=== PATIENT | female | born 1970 | race Caucasian/White ===

== ENCOUNTER 2023-02-09 17:37 | Emergency (ER) | payer OTHER ==
[~2023-02-09] VITALS: Ht 165.1 cm; Wt 90.7 kg
[2023-02-09 18:09] LABS: BASOPHILS ABSOLUTE AUTO 0.07 K/mm3 (0.00-0.23); BASOPHILS PERCENT AUTO 1 % (0-2); EOSINOPHILS ABSOLUTE AUTO 0.18 K/mm3 (0.00-0.68); EOSINOPHILS PERCENT AUTO 2 % (0-6); Hematocrit 39.1 % (33.0-51.0); Hemoglobin 12.7 g/dL (11.5-16.0); IMMATURE GRAN ABSOLUTE AUTO 0.03 K/mm3 (0.00-0.10); IMMATURE GRAN PERCENT AUTO 0 % (0-1); LYMPHOCYTES ABSOLUTE AUTO 2.08 K/mm3 (0.84-5.20); LYMPHOCYTES PERCENT AUTO 22 % (21-46); MONOCYTES ABSOLUTE AUTO 0.81 K/mm3 (0.16-1.47); MONOCYTES PERCENT AUTO 9 % (4-13); Mean Corpuscular HGB 25.9 pg (26.0-34.0); Mean Corpuscular HGB Conc 32.5 g/dL (31.5-36.5); Mean Corpuscular Volume 80 fL (80-100); Mean Platelet Volume 9.7 fL (9.1-12.4); NEUTROPHILS PERCENT AUTO 66 % (41-73); Platelet Count 277 K/mm3 (150-400); RDW Coefficient Variation 13.2 % (11.7-14.2); RDW Standard Deviation 37.4 fL (35.1-46.3); Red Blood Cell Count 4.91 M/mm3 (3.80-5.20); White Blood Cell Count 9.37 K/mm3 (4.00-11.30)
[2023-02-09] MEDS ORDERED: PANT40 PO (18:12)
[2023-02-09] MEDS ORDERED: FAMO20 PO (18:12)
[2023-02-09] MEDS ORDERED: Vitamin D1000 UNI1 PO (18:12)
[2023-02-09] MEDS ORDERED: MONT10T PO (18:13)
[2023-02-09] MEDS ORDERED: ALBU90OI INH (18:14)
[2023-02-09] MEDS ORDERED: Flovent Diskus50 MCG IH (18:14)
[2023-02-09 18:38] LABS: Albumin, Blood 3.9 g/dL (3.4-5.0); Albumin/Globulin Ratio 1.1 (0.8-1.8); Bilirubin, Total 0.5 mg/dL (0.1-1.0); Bun/Creatinine Ratio 24.8 (12.0-20.0); Calcium, Blood 8.7 mg/dL (8.5-10.1); Creatinine, Blood 0.73 mg/dL (0.40-1.00); Globulin, Blood 3.5 g/dL (2.2-4.0); Potassium, Blood 3.9 mmol/L (3.5-5.5); Total Protein, Blood 7.4 g/dL (6.4-8.2)
[2023-02-09 23:34] LABS: Source, Urine Clean Catch
[2023-02-09 23:37] LABS: Bilirubin, Urine Neg (Neg); Blood, Urine Neg (Neg); Glucose Qualitative, Urine Neg (Neg); Ketones, Urine Neg (Neg); Leukocyte Esterase, Urine Neg (Neg); Nitrite, Urine Neg (Neg); Protein, Urine Neg (Neg); Specific Gravity, Urine 1.015 (1.003-1.022); Urobilinogen, Urine NORM (Normal)
[2023-02-09 23:41] LABS: Appearance, Urine Clear (Clear); Color, Urine Yellow (P-Yellow)
[2023-02-10 00:15] VITALS: BP 103/65
[2023-02-10] MEDS ORDERED: Protonix40 MG PO (01:46)
[2023-02-10] MEDS ORDERED: ONDA4ODT MM (01:46)
== END 2023-02-10 02:16 | disposition home or self-care (01) ==
LOC: ER 17:37
PROVIDERS: Emergency Medicine
DX: R10.13 Epigastric pain (principal); Z88.6 Allergy status to analgesic agent; Z88.1 Allergy status to other antibiotic agents; Z88.5 Allergy status to narcotic agent; Z88.2 Allergy status to sulfonamides; Z88.8 Allergy status to other drugs, medicaments and biological substances; J45.909 Unspecified asthma, uncomplicated; Z79.899 Other long term (current) drug therapy
CPT/HCPCS: 71046; 80053; 81003; 83690; 84484; 85025; 93005; 93010; 96374; 96375; 99284-25; A9270; C9113; J1200; J3010

== ENCOUNTER 2023-11-18 02:09 | Emergency (ER) | payer OTHER ==
[~2023-11-18] VITALS: Ht 157.5 cm; Wt 72.6 kg
[~2023-11-18 02:09] MED LIST: ALBU90OI INH; ALMACONE SUSPE355 ML PO; AMOX500 PO; BUPR100 PO; CLAR500 PO; ESCITALOPRAM OX20 M1 PO; FAMO20 PO; Flovent Diskus50 MCG IH; LOSA50 PO; MONDOXYNE NL100 MG PO; MONT10T PO; ONDA4ODT MM; PANT40 PO; Protonix40 MG PO; SUCR1 PO; Vitamin D1000 UNI1 PO
[2023-11-18] MEDS ORDERED: LORazepam 1 MG Tab PO ONE (02:45)
[2023-11-18] MEDS ORDERED: Sod Phosphate/Sod Biphosphate 132 ML BTL PR ONE (05:00)
[2023-11-18] MEDS ORDERED: Magnesium Citrate 300 ML BTL PO ONE (05:35)
[2023-11-18 06:05] VITALS: BP 128/75
== END 2023-11-18 06:11 | disposition home or self-care (01) ==
LOC: ER 02:09
DX: K59.03 Drug induced constipation (principal); T40.2X1A Poisoning by other opioids, accidental (unintentional), initial encounter; J45.909 Unspecified asthma, uncomplicated; Z88.5 Allergy status to narcotic agent; Z88.2 Allergy status to sulfonamides; Z88.6 Allergy status to analgesic agent; Z79.2 Long term (current) use of antibiotics; Z79.899 Other long term (current) drug therapy; Z88.8 Allergy status to other drugs, medicaments and biological substances
CPT/HCPCS: 99283; A9270

== ENCOUNTER 2024-06-02 13:17 | Emergency (ER) | payer OTHER ==
[~2024-06-02] VITALS: Ht 167.6 cm; Wt 63.5 kg
[2024-06-02 13:22] VITALS: BP 124/89
[2024-06-02] MEDS ORDERED: Ketorolac Tromethamine 30mg Vial IM ONE (14:45)
[2024-06-02] MEDS ORDERED: Neurontin 300300 MG PO (14:45)
== END 2024-06-02 14:55 | disposition home or self-care (01) ==
LOC: ER 13:17
DX: M25.551 Pain in right hip (principal); J45.909 Unspecified asthma, uncomplicated; Z88.6 Allergy status to analgesic agent; Z88.2 Allergy status to sulfonamides; Z88.1 Allergy status to other antibiotic agents; Z88.5 Allergy status to narcotic agent; Z88.8 Allergy status to other drugs, medicaments and biological substances; Z79.51 Long term (current) use of inhaled steroids; Z79.899 Other long term (current) drug therapy; Z59.89 Other problems related to housing and economic circumstances; W01.0XXA Fall on same level from slipping, tripping and stumbling without subsequent striking against object, initial encounter
CPT/HCPCS: 72192; 96372; 99283-25; J1885

== ENCOUNTER 2024-10-13 03:55 | Emergency (ER) | payer OTHER ==
[~2024-10-13] VITALS: Ht 157.5 cm; Wt 69.8 kg
[~2024-10-13 03:55] MED LIST changes: +Neurontin 300300 MG PO
[2024-10-13] MEDS ORDERED: Metoclopramide HCl 5MG / ML 2ML Vial IV ONE (06:20)
[2024-10-13] MEDS ORDERED: Ketorolac Tromethamine 30mg Vial IV ONE ×2 (06:20→07:30)
[2024-10-13] MEDS ORDERED: NS 1,000 ML IV SCH ×2 (06:25→07:30)
[2024-10-13] MEDS ORDERED: DiphenhydrAMINE HCl 50 MG/ML 1ML Vial IV ONE (06:25)
[2024-10-13] MEDS ORDERED: Prochlorperazine Edisylate 10 mg Vial IV ONE (07:30)
[2024-10-13 08:50] VITALS: BP 118/64
[2024-10-13] MEDS ORDERED: REGLAN1013 PO (09:25)
[2024-10-13] MEDS ORDERED: PROC5 PO (09:25)
== END 2024-10-13 09:35 | disposition home or self-care (01) ==
LOC: ER 03:55
DX: G44.40 Drug-induced headache, not elsewhere classified, not intractable (principal); T50.Z95A Adverse effect of other vaccines and biological substances, initial encounter; I10 Essential (primary) hypertension; J45.909 Unspecified asthma, uncomplicated; Z88.1 Allergy status to other antibiotic agents; Z88.8 Allergy status to other drugs, medicaments and biological substances; Z88.5 Allergy status to narcotic agent; Z88.2 Allergy status to sulfonamides; Z79.899 Other long term (current) drug therapy
CPT/HCPCS: 96361; 96374; 96375; 96376; 99283-25; J0780; J1200; J1885; J2765; J7030

== ENCOUNTER 2025-01-25 21:51 | Emergency (ER) | payer OTHER ==
[~2025-01-25] VITALS: Ht 157.5 cm; Wt 68.0 kg
[~2025-01-25 21:51] MED LIST changes: +PROC5 PO; +REGLAN1013 PO
[2025-01-25 22:52] VITALS: BP 148/92
[2025-01-26] MEDS ORDERED: AMOCLA875 PO (02:06)
== END 2025-01-26 02:43 | disposition home or self-care (01) ==
LOC: ER 21:51
DX: S61.452A Open bite of left hand, initial encounter (principal); I10 Essential (primary) hypertension; Z90.710 Acquired absence of both cervix and uterus; Z79.2 Long term (current) use of antibiotics; Z79.899 Other long term (current) drug therapy; Z88.1 Allergy status to other antibiotic agents; Z88.5 Allergy status to narcotic agent; W55.01XA Bitten by cat, initial encounter
CPT/HCPCS: 73120; 99283-25; A9270

== ENCOUNTER 2025-05-10 19:28 | Emergency (ER) | payer OTHER ==
[~2025-05-10] VITALS: Ht 157.5 cm; Wt 72.6 kg
[~2025-05-10 19:28] MED LIST changes: +AMOCLA875 PO
[2025-05-10] MEDS ORDERED: HYDPAM100 PO (20:24)
[2025-05-10 20:45] VITALS: BP 141/80
== END 2025-05-10 20:45 | disposition home or self-care (01) ==
LOC: ER 19:28
DX: S61.211A Laceration without foreign body of left index finger without damage to nail, initial encounter (principal); Z87.11 Personal history of peptic ulcer disease; Z88.6 Allergy status to analgesic agent; Z88.5 Allergy status to narcotic agent; Z88.2 Allergy status to sulfonamides; Z88.1 Allergy status to other antibiotic agents; Z88.8 Allergy status to other drugs, medicaments and biological substances; Z79.899 Other long term (current) drug therapy; W26.0XXA Contact with knife, initial encounter; Y93.E9 Activity, other interior property and clothing maintenance
CPT/HCPCS: 12001; 99282-25